=== PATIENT | female | born 1970 | race Caucasian/White ===

== ENCOUNTER 2016-11-07 16:32 | Emergency (ER) | payer OTHER ==
[~2016-11-07] VITALS: Ht 165.1 cm; Wt 154.0 kg
[~2016-11-07 16:32] MED LIST: ADVIN25/60 INH; FURO-85 PO; IBUP-103 PO; LANS30CA12 PO
[2016-11-07 16:37] VITALS: Ht 165.1 cm; Wt 154.0 kg
[2016-11-07] MEDS ORDERED: ALBUT/IPRATROP 3MG/0.5MG NEB 3 ML VIAL INH STA (16:59)
[2016-11-07] MEDS ORDERED: METHYLPREDNISOLONE 125 MG VIAL IV STA (16:59)
[2016-11-07] MEDS ORDERED: ONDANSETRON INJ 2 MG/ML 2 ML VIAL IV STA (16:59)
[2016-11-07] MEDS ORDERED: MoRPHine SULFATE 4 MG/ML 1 ML CARP\\VIAL IV STA ×2 (16:59→18:42)
--- NOTE | 2016-11-07 17:18 | DIAGNOSTIC IMAGING REPORT ---
CHEST ONE VIEW PORTABLE CLINICAL HISTORY: CHEST PAIN dyspnea COMPARISON STUDY: 11/15/2015 FINDINGS: The bones soft tissues and hemidiaphragms are normal. The cardiomediastinal silhouette is normal. The lungs are clear. The pulmonary vasculature is normal. IMPRESSION: Negative chest. Electronically signed by: Kuldeep Cates M.D. 11/07/2016 5:16 PM Dictated Date/Time: 11/07/2016 5:16 PM
--- NOTE | 2016-11-07 17:21 | EMERGENCY ROOM VISIT NOTE ---
History Report prepared by Shagufta: Kai Hopper Under the Supervision of: Dr. Sheng Velez M.D. First contact with patient: 16:50 Chief Complaint: ILLNESS Stated Complaint: CHEST CONGESTION, CHEST PAIN, NASAL DRAINAGE, KINGSLEY History of Present Illness The patient is a 45 year old female who presents to the Emergency Room with complaints of a persistent nonproductive cough starting about a month ago. She reports a "clicking" sensation in her chest. She also complains of a subjective fever, right sided headache, shortness of breath, chest pain with coughing, and nausea. She was diagnosed with a viral illness about a month ago by her PCP and was prescribed Keflex and Prednisone without relief. She has a history of COPD and has been using her inhaler without relief. Yesterday, the patient also started having erythematous patches and hot skin. She denies any abdominal pain , vomiting, diarrhea, pain/swelling in lower extremities, or any other complaints. Source of History: patient Onset: about a month ago Position: other (global) Quality: other (nonproductive cough) Timing: other (persistent) Modifying Factors (Relieving): other (Keflex, Prednisone, inhaler without relief) Associated Symptoms: + SOB, + chest pain, + fevers (subjective), + headache , + nausea, No abdominal pain, No diarrhea, No vomiting Review of Systems See HPI for pertinent positives & negatives. A total of 10 systems reviewed and were otherwise negative. Past Medical & Surgical Medical Problems: (1) Asthma (2) COPD (chronic obstructive pulmonary disease) (3) Endometriosis (4) GERD (gastroesophageal reflux disease) (5) Hepatitis C, chronic (6) Hypertension (7) Kidney stone (8) Multiple sclerosis (9) Ovarian cyst (10) Pneumonia (11) Tobacco use disorder Surgical Problems: (1) S/P hysterectomy Old medical records were reviewed. Nurse's notes were reviewed and I agree with. Family History Diabetes mellitus FHx: cancer FHx: gallbladder disease FHx: heart disease Hypertension Kidney disease Kidney stones Seizures Social History Smoking Status: Former Smoker Alcohol Use: none Marital Status: Housing Status: lives with family Occupation Status: employed Current/Historical Medications Scheduled Amoxicillin & Pot Clavulanate (Augmentin 875-125 mg), 875 MG PO BID Aspirin (Aspirin Ec), 81 MG PO DAILY Cephalexin Monohydrate (Keflex), 500 MG PO TID Fluticasone Prop/Salmeterol (Advair Diskus 250/50 60 Dose), 1 PUFF INH QAM Furosemide (Furosemide), 40 MG PO QAM Lansoprazole (Prevacid), 30 MG PO DAILY Methylprednisolone (Medrol Dosepak), 4 MG PO UD Scheduled PRN Docusate Sodium (Stool Softener), 100 MG PO BID PRN for Constipation Guaifenesin (Chest Congestion Relief), 400 MG PO Q4H PRN for Chest Congestion Ibuprofen Tab (Advil), 400-600 MG PO Q6H PRN for Pain Phenylephrine-Chlorpheniramine ([place] Plus Cold &), 1 DOSE PEG Q4H PRN for Cold/Cough Allergies Coded Allergies: Glatiramer (Verified Allergy, Unknown, Anaphylaxis, 11/15/15) Mannitol (Verified Allergy, Unknown, Anaphylaxis, 11/15/15) Acetaminophen (Verified Adverse Reaction, Unknown, HEPATITIS C, 11/15/15) Physical Exam Vital Signs Date Time Temp Pulse Resp B/P Pulse Ox O2 Delivery O2 Flow Rate FiO2 11/07/16 19:25 36.8 76 16 139/85 95 11/07/16 19:07 76 16 95 11/07/16 19:00 139/85 11/07/16 18:37 80 21 94 11/07/16 18:30 134/95 11/07/16 18:07 74 14 94 11/07/16 18:02 78 14 96 11/07/16 18:00 142/87 11/07/16 17:42 78 20 129/87 95 Room Air 11/07/16 17:34 129/87 11/07/16 17:33 74 11/07/16 17:32 73 11 100 11/07/16 16:37 36.8 87 20 164/113 93 Room Air Physical Exam General: Non-ill appearing, middle aged female, with an occasional cough, in no acute distress. HEENT: Normal cephalic atraumatic. Pupils are equal round and reactive to light. Extraocular movements are intact. Oropharynx is pink with moist mucous membranes. No swelling of the mouth lips or tongue. Neck: Supple with a midline trachea. No meningeal signs or stiffness, no JVD or bruits. No Stridor. Chest: Scattered wheezes bilaterally but good air movement. No increased work of breathing. Heart: regular rate and rhythm. Abdomen: Soft nontender, nondistended without rebound guarding or rigidity. Extremities: No cyanosis clubbing or edema. No calf tenderness or assymetry Spine/Back. Non tender to palpation. No CVA tenderness Skin: Good turgor without rashes. Neurologic exam: Cranial nerves two through 12 are intact. Motor and sensation are intact and symmetrical throughout. Medical Decision & Procedures ER Provider Diagnostic Interpretation: X-ray results as stated below per interpretation by me and the radiologist: CHEST ONE VIEW PORTABLE CLINICAL HISTORY: CHEST PAIN dyspnea COMPARISON STUDY: 11/15/2015 FINDINGS: The bones soft tissues and hemidiaphragms are normal. The cardiomediastinal silhouette is normal. The lungs are clear. The pulmonary vasculature is normal. IMPRESSION: Negative chest. Electronically signed by: Kuldeep Cates M.D. 11/07/2016 5:16 PM Dictated Date/Time: 11/07/2016 5:16 PM Laboratory Results 11/07/16 17:20 Red Blood Count 4.03, Mean Corpuscular Volume 92.6, Mean Corpuscular Hemoglobin 30.0, Mean Corpuscular Hemoglobin Concent 32.4, Mean Platelet Volume 9.7, Neutrophils (%) (Auto) 48.7, Lymphocytes (%) (Auto) 44.2, Monocytes (%) (Auto) 5.8, Eosinophils (%) (Auto) 0.7, Basophils (%) (Auto) 0.2, Neutrophils # (Auto) 5.00, Lymphocytes # (Auto) 4.54, Monocytes # (Auto) 0.60, Eosinophils # (Auto) 0.07, Basophils # (Auto) 0.02 11/07/16 17:20 Test 11/07/16 17:20 11/07/16 17:38 White Blood Count 10.27 K/uL (4.8-10.8) Red Blood Count 4.03 M/uL (4.2-5.4) Hemoglobin 12.1 g/dL (12.0-16.0) Hematocrit 37.3 % (37-47) Mean Corpuscular Volume 92.6 fL (80-100) Mean Corpuscular Hemoglobin 30.0 pg (25-34) Mean Corpuscular Hemoglobin Concent 32.4 g/dl (32-36) Platelet Count 167 K/uL (130-400) Mean Platelet Volume 9.7 fL (7.4-10.4) Neutrophils (%) (Auto) 48.7 % Lymphocytes (%) (Auto) 44.2 % Monocytes (%) (Auto) 5.8 % Eosinophils (%) (Auto) 0.7 % Basophils (%) (Auto) 0.2 % Neutrophils # (Auto) 5.00 K/uL (1.4-6.5) Lymphocytes # (Auto) 4.54 K/uL (1.2-3.4) Monocytes # (Auto) 0.60 K/uL (0.11-0.59) Eosinophils # (Auto) 0.07 K/uL (0-0.5) Basophils # (Auto) 0.02 K/uL (0-0.2) RDW Standard Deviation 50.1 fL (36.4-46.3) RDW Coefficient of Variation 14.7 % (11.5-14.5) Immature Granulocyte % (Auto) 0.4 % Immature Granulocyte # (Auto) 0.04 K/uL (0.00-0.02) Anion Gap 5.0 mmol/L (3-11) Est Creatinine Clear Calc Drug Dose 130.8 ml/min Estimated GFR () 99.4 Estimated GFR (Non- 85.8 BUN/Creatinine Ratio 9.6 (10-20) Calcium Level 8.2 mg/dl (8.5-10.1) Total Bilirubin 0.3 mg/dl (0.2-1) Direct Bilirubin 0.1 mg/dl (0-0.2) Aspartate Amino Transf (AST/SGOT) 29 U/L (15-37) Alanine Aminotransferase (ALT/SGPT) 38 U/L (12-78) Alkaline Phosphatase 83 U/L (45-117) Total Protein 7.6 gm/dl (6.4-8.2) Albumin 3.7 gm/dl (3.4-5.0) Lipase 166 U/L (73-393) Bedside Troponin I 0.000 ng/ml (0-0.045) Laboratory studies as stated above per my review. Medications Administered Medications (Trade) Dose Ordered Sig/Ayush Route Start Time Stop Time Status Last Admin Dose Admin Methylprednisolone Sodium Succinate (Solu-Medrol IV) 125 mg ONE STAT IV 11/07/16 16:59 11/07/16 17:01 DC 11/07/16 17:29 125 MG Morphine Sulfate (MoRPHine SULFATE INJ) 4 mg NOW STAT IV 11/07/16 16:59 11/07/16 17:01 DC 11/07/16 17:30 4 MG Ondansetron HCl (Zofran Inj) 4 mg NOW STAT IV 11/07/16 16:59 11/07/16 17:01 DC 11/07/16 17:28 4 MG Albuterol/ Ipratropium (Duoneb) 3 ml NOW STAT INH 11/07/16 16:59 11/07/16 17:01 DC 11/07/16 17:28 3 ML Morphine Sulfate (MoRPHine SULFATE INJ) 4 mg NOW STAT IV 11/07/16 18:42 11/07/16 18:43 DC 11/07/16 18:51 4 MG Albuterol (Ventolin Hfa Inhaler) 2 puffs NOW ONCE INH 11/07/16 19:00 11/07/16 19:01 DC 11/07/16 19:08 2 PUFFS Amoxicillin/ Clavulanate Potassium (Augmentin 875MG Home Pack) 1 homepack UD ONCE PO 11/07/16 19:00 11/07/16 19:01 DC 11/07/16 19:08 1 HOMEPACK Hydrocodone Bit/ Homatropine Methylb (Hycodan Elix Homepack 5/1.5MG/ 5ML) 1 homepack UD ONCE PO 11/07/16 19:00 11/07/16 19:01 DC 11/07/16 19:07 1 HOMEPACK ECG Indication: SOB/dyspnea Rate (beats per minute): 75 Findings: no acute ischemic change, no ectopy Comparison ECG Date: November 15, 2015 Change: no significant change ED Course 1650: Past medical records reviewed. The patient was evaluated in room C03, and a complete history and physical examination were performed. 165: DuoNeb 3 ml INH, Zofran Inj 4 mg IV, Morphine Sulfate 4 mg IV, Solu- Medrol IV 125 mg IV 1842: Morphine Sulfate 4 mg IV 1850: Upon reevaluation, the patient is resting comfortably. I discussed the results and treatment plan with her. She verbalized agreement of the treatment plan. The patient was discharged home. 1900: Hydrocodone Bit/Homatropine Methylb 1 homepack PO, Amoxicillin/ Clavulanate Potassium 1 homepack PO, Albuterol 2 Puffs INH Medical Decision Differential diagnosis includes but is not limited to bronchitis, pneumonia, cardiac disease, sinusitis, COPD exacerbation, viral illness, electrolyte or metabolic abnormalities. This patient comes in as described above she has cough and URI type symptoms. She was given albuterol Atrovent neb as well as IV Solu-Medrol. EKG, chest x- ray, multiple blood tests was obtained. She has nothing to suggest acute coronary syndrome or significant arrhythmia. Chest x-ray does not suggest congestive heart failure, pneumonia, or pneumothorax. She has no acute electrolyte or metabolic abnormalities. She was requesting something for her migraine and was given morphine 4 mg IV and Zofran 4 mg IV. She did receive additional IV morphine. She is nontoxic and non-lethargic and she has nothing to suggest meningitis or encephalitis. I will increase antibiotic coverage to Augmentin 875 mg twice a days which will cover sinusitis and bronchitis. She is feeling better and would like to go home and to give her prescription for some Hycodan syrup as well and I warned her that it can make her drowsy and do not take before drinking, driving, working. She should return if: Worsening of symptoms, shortness of breath, fever or chills, any new problems or concerns. She is happy with plan and discharged to home. Impression Primary Impression: Sinusitis Additional Impression: Bronchitis Scribe Attestation The scribe's documentation has been prepared under my direction and personally reviewed by me in its entirety. I confirm that the note above accurately reflects all work, treatment, procedures, and medical decision making performed by me. Departure Information Dispostion Home / Self-Care Prescriptions Amoxicillin & Pot Clavulanate (Augmentin 875-125 mg) 1 Tab Tab 875 MG PO BID for 10 Days, #20 TAB Prov: Sheng Velez M.D. 11/07/16 Referrals No Doctor, Assigned (PCP) Forms HOME CARE DOCUMENTATION FORM, IMPORTANT VISIT INFORMATION, WORK / SCHOOL INSTRUCTIONS Patient Instructions My [facility] Additional Instructions Rest. Drink plenty of fluids. Use Augmentin 875 mg twice a day for 10 daysthis replaces the Keflex For cough, May use Hycodan syrup one or 2 teaspoons every 6 hours as needed Hycodan may make you drowsy and do not take before drinking, driving, working Use albuterol inhaler 2 puffs every 4 hours as needed for shortness of breath. Continue your steroids. Return if: Worsening of symptoms, fever or chills, shortness of breath, any new problems or concerns. Follow-up with your doctor on Thursday for recheck or return here over the weekend if symptoms worsen Problem Qualifiers
[2016-11-07 17:43] LABS: BASO % 0.2 %; BASO ABS # 0.02 K/uL (0-0.2); COMPLETE YES; EOS % 0.7 %; HEMATOCRIT 37.3 % (37-47); IG% 0.4 %; LYMPH % 44.2 %; LYMPH ABS # 4.54 K/uL (1.2-3.4); MEAN CELL VOLUME 92.6 fL (80-100); MEAN CORPUSCULAR HGB CONC 32.4 g/dl (32-36); MEAN PLATELET VOLUME 9.7 fL (7.4-10.4); MONO % 5.8 %; NEUT % 48.7 %; PLATELET COUNT 167 K/uL (130-400); RED BLOOD COUNT 4.03 M/uL (4.2-5.4); WHITE BLOOD COUNT 10.27 K/uL (4.8-10.8)
[2016-11-07 18:00] LABS: BUN/CREATININE RATIO 9.6 (10-20); CALCIUM 8.2 mg/dl (8.5-10.1); CREATININE 0.83 mg/dl (0.60-1.20); POTASSIUM 3.1 mmol/L (3.5-5.1)
[2016-11-07] MEDS ORDERED: LANS30CA63 PO (18:18)
[2016-11-07] MEDS ORDERED: GUAI1TAB20 PO (18:18)
[2016-11-07] MEDS ORDERED: METH4PAK PO (18:18)
[2016-11-07] MEDS ORDERED: LSX20 PO (18:18)
[2016-11-07] MEDS ORDERED: PHEN-536 PEG (18:18)
[2016-11-07] MEDS ORDERED: CEPH500C2 PO (18:19)
[2016-11-07] MEDS ORDERED: HYCODAN 60ML BOTTLE HOMEPACK PO ONE (19:00)
[2016-11-07] MEDS ORDERED: AMOXICIL/CLAVU 875MG HOME PACK PO ONE (19:00)
[2016-11-07] MEDS ORDERED: ALBUTEROL HFA 8 GM INHALER INH ONE (19:00)
[2016-11-07] MEDS ORDERED: AMOX875T PO (19:01)
[2016-11-07 19:25] VITALS: BP 139/85; PULSE 76; TEMP 36.8; O2SAT 95
[2016-11-07] MEDS ORDERED: ASPI81TA28 PO (19:43)
[2016-11-07] MEDS ORDERED: DOCU100T7 PO (23:00)
== END 2016-11-07 19:26 | disposition home or self-care (01) ==
LOC: C.EDB 16:33 → C.EDC 19:26
DX: J20.9 Acute bronchitis, unspecified (principal); J40 Bronchitis, not specified as acute or chronic; J45.909 Unspecified asthma, uncomplicated; J44.9 Chronic obstructive pulmonary disease, unspecified; I10 Essential (primary) hypertension; K21.9 Gastro-esophageal reflux disease without esophagitis; G35 Multiple sclerosis; N83.209 Unspecified ovarian cyst, unspecified side; F17.200 Nicotine dependence, unspecified, uncomplicated; Z87.442 Personal history of urinary calculi; Z90.710 Acquired absence of both cervix and uterus; Z87.891 Personal history of nicotine dependence; Z79.82 Long term (current) use of aspirin; Z79.899 Other long term (current) drug therapy; Z83.3 Family history of diabetes mellitus; Z80.9 Family history of malignant neoplasm, unspecified; Z83.79 Family history of other diseases of the digestive system; Z82.49 Family history of ischemic heart disease and other diseases of the circulatory system; Z84.1 Family history of disorders of kidney and ureter; Z82.0 Family history of epilepsy and other diseases of the nervous system

== ENCOUNTER → 2017-10-14 | Outpatient (CLI) | payer OTHER ==
[~2017-10-14] MED LIST changes: +ASPI81TA28 PO; +CEPH500C2 PO; +DOCU100T7 PO; -FURO-85 PO; +GADAVIST IV PRN; +GUAI1TAB20 PO; -LANS30CA12 PO; +LANS30CA63 PO; +LSX20 PO; +METH4PAK PO; +PHEN-536 PEG
--- NOTE | 2017-10-14 11:29 | DIAGNOSTIC IMAGING REPORT ---
MRI OF THE BRAIN COMBO CLINICAL HISTORY: Multiple sclerosis follow-up. No new symptoms reported. COMPARISON STUDY: MRI of the brain dated 04/04/2015. TECHNIQUE: MRI of the brain was performed utilizing various T1 and T2-weighted sequences in the axial, sagittal, and coronal planes. Contrast-enhanced sequences were acquired following the administration of 12.5 cc of Gadavist. The examination is performed using the multiple sclerosis protocol. FINDINGS: Brain parenchyma: There are numerous T2 hyperintense plaques scattered throughout the subcortical and periventricular white matter typical in appearance for the reported clinical history of multiple sclerosis. This has not significantly changed as compared to the 04/04/2015 examination. There is no associated abnormal enhancement on the postcontrast sequences to suggest active demyelination. There is no hemorrhage or mass effect. There is no restricted diffusion to suggest acute ischemia. No enhancing mass lesion is identified on the postcontrast images. [place]-white matter differentiation is preserved. No extra-axial fluid collection is seen. The cerebellar tonsils are normal in configuration. A 5 mm pineal cyst is incidentally noted. Ventricles, sulci, and cisterns: Normal in configuration. Pituitary and sella: Unremarkable. Intracranial vasculature: Normal flow voids are maintained at the skull base. Orbits: The bony orbits are grossly intact. Orbital contents are normal in appearance. Sinuses and mastoids: Mild mucosal thickening is seen in the right maxillary antrum. The remaining paranasal sinuses and the mastoid air cells are clear. Calvarium: Unremarkable. Cervical cord: Partially visualized cervical spinal cord is normal in morphology and signal intensity. IMPRESSION: 1. No acute intracranial abnormality. 2. Again seen are numerous T2 hyperintense lesions scattered throughout the subcortical and periventricular white matter. This is consistent with the reported clinical history of multiple sclerosis, and not significantly changed from 04/04/2015. 3. There is no abnormal enhancement identified within the lesions to suggest active demyelination. Electronically signed by: Jeronimo Garcia M.D. 10/14/2017 11:28 AM Dictated Date/Time: 10/14/2017 11:22 AM
== END | disposition home or self-care (01) ==
LOC: C.MRIBC 10:06
PROVIDERS: ATTEND Physician Assistant
DX: G35 Multiple sclerosis (principal)